=== PATIENT | male | born 1980 ===

== ENCOUNTER → 2022-11-12 | Outpatient (REF) | payer OTHER ==
[2022-11-12 12:27] LABS: SEMEN APPEARANCE OPAQUE (OPAQUE); SEMEN VISCOSITY VISCOUS (LIQUID); SEMEN VOLUME 0.9 ml (2.0-5.0); WBC CONCENTRATION <=1 M/ml (<=1 M/ml)
[2022-11-12 12:28] LABS: SPERM CONCENTRATION 182.5 M/ml (>=15.0)
== END ==
LOC: M LAB REF 11:47
PROVIDERS: ATTEND Obstetrics & Gynecology
DX: N46.8 Other male infertility (principal)